=== PATIENT | male | born 1990 | race Two or more races ===

== ENCOUNTER 2019-06-18 11:01 | Emergency (ER) | payer OTHER ==
[2019-06-18] MEDS ORDERED: Ibuprofen 600 MG Tab PO ONE (11:07)
--- NOTE | 2019-06-18 11:11 | EDM.PDOC ---
ED HPI GENERAL MEDICAL PROBLEM - General Chief Complaint: Back Pain or Injury Stated Complaint: EV PAIN AFTER LIFTING AT WORK Time Seen by Provider: 06/18/19 11:01 Source of Information: Reports: Patient History Limitations: Reports: No Limitations - History of Present Illness INITIAL COMMENTS - FREE TEXT/NARRATIVE: 28 y.o.w.m came to the ed after he was lifting some weights at work and felt suddenly a pain and a "pup" at his mid lower back. No stool or urine incontinence, no pain radiating down his lower extremities. No direct trauma. Localized tender ness mid lower back. Standing makes the pain better. 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/56 RR 15 Pulse ox 100% on RA Temp 36.8 Pulse 68 Onset: Today Onset Date: 06/18/19 Onset Time: 08:00 Duration: Hour(s): Location: Reports: Back Quality: Reports: Dull, Pressure Severity: Moderate Improves with: Reports: Rest Worsens with: Reports: Movement Context: Reports: Lifting middle back Pain Score (Numeric/FACES): 4 - Related Data Allergies Allergy/AdvReac Type Severity Reaction Status Date / Time No Known Allergies Allergy Verified 06/18/19 11:21 ED ROS GENERAL - Review of Systems Review Of Systems: See Below Constitutional: Reports: No Symptoms HEENT: Reports: No Symptoms Respiratory: Reports: No Symptoms Cardiovascular: Reports: No Symptoms Endocrine: Reports: No Symptoms GI/Abdominal: Reports: No Symptoms : Reports: No Symptoms Musculoskeletal: Reports: Back Pain Skin: Reports: No Symptoms Neurological: Reports: No Symptoms Psychiatric: Reports: No Symptoms Hematologic/Lymphatic: Reports: No Symptoms Immunologic: Reports: No Symptoms ED EXAM,LOWER BACK PAIN/INJURY - Physical Exam Exam: See Below Exam Limited By: No Limitations General Appearance: Alert, WD/WN, Mild Distress Eye Exam: Bilateral Eye: Normal Inspection Ears: Normal External Exam Nose: Normal Inspection Throat/Mouth: Normal Inspection, Normal Lips, Normal Teeth, Normal Gums, Normal Voice, No Airway Compromise Head: Atraumatic, Normocephalic Neck: Normal Inspection, Supple, Non-Tender, Full Range of Motion Respiratory/Chest: No Respiratory Distress, Lungs Clear, Normal Breath Sounds Cardiovascular: Normal Peripheral Pulses, Regular Rate, Rhythm, No Edema, No Gallop GI/Abdominal: Normal Bowel Sounds, Soft, Non-Tender, No Organomegaly, No Abnormal Bruit, No Mass, Pelvis Stable (Male) Exam: Deferred Rectal (Males) Exam: Deferred Back Exam: Normal Inspection Psychiatric: Normal Affect, Normal Mood Skin Exam: Warm, Dry, Intact, Normal Color Lymphatic: No Adenopathy Course - Vital Signs Text/Narrative:: 28 y.o.w.m came to the ed after he was lifting some weights at work and felt suddenly a pain and a "pup" at his mid lower back. No stool or urine incontinence, no pain radiating down his lower extremities. No direct trauma. Localized tender ness mid lower back. Standing makes the pain better. 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/56 RR 15 Pulse ox 100% on RA Temp 36.8 Pulse 68 PE: WNWD W M with a work related injury lower back Imaging: CT T amd L spine Neg: As per RAD Impression: Low back pain/sprain Tx: ICE, Motrin Reexam: Improved Plan: D/C with instructions Last Recorded V/S: Last Vital Signs Temp 36.9 C 06/18/19 11:10 Pulse 68 06/18/19 11:10 Resp 14 06/18/19 11:10 BP 122/84 06/18/19 11:10 Pulse Ox 100 06/18/19 11:10 - Orders/Labs/Meds Meds: Medications Discontinued Medications Generic Name Dose Route Start Last Admin Trade Name Tina PRN Reason Stop Dose Admin Ibuprofen 600 mg 06/18/19 11:07 06/18/19 11:26 Motrin PO 06/18/19 11:08 600 mg ONETIME ONE Administration Departure - Departure Time of Disposition: 12:14 Disposition: Home, Self-Care 01 Condition: Good Clinical Impression: Low back pain Qualifiers: Chronicity: acute Back pain laterality: unspecified Sciatica presence: without sciatica Qualified Code(s): M54.5 - Low back pain - Discharge Information Instructions: Acute Back Pain, Adult Referrals: PCP,None [Primary Care Provider] - Forms: ED Department Discharge, ED Return to Work/School Form Additional Instructions: Please apply ice to lower back, Motrin for pain, F/U, come back if your symptoms get worse acutely
--- NOTE | 2019-06-18 14:02 | CT ---
INDICATION: Trauma. COMPUTERIZED TOMOGRAPHY OF THORACIC SPINE WITHOUT CONTRAST: Spiral 2.5 mm axial sections were obtained through the thoracic spine with sagittal and coronal reconstructions. Examination was obtained June 18, 2019--no comparisons. Total exam DLP =1089.33 mGy-cm. A minimal dextroconvex scoliosis of the upper middle thoracic spine is noted. There are some mild degenerative changes mostly in the mid-thoracic spine. Vertebral body and for the most part disc heights were well maintained with one narrow disc space in the mid thoracic spine apparently partly due to an intervertebral disc herniation at that level. However, no acute fracture or dislocation was suggested. IMPRESSION: No acute fracture or dislocation. Report was called to Dr. Wilkes at 1210 hours. [facility]
--- NOTE | 2019-06-18 14:11 | CT ---
INDICATION: Heavy lifting, severe back pain from below shoulder blades to sacrum. COMPUTERIZED TOMOGRAPHY OF LUMBAR SPINE WITHOUT CONTRAST: Spiral axial images of the lumbosacral spine were obtained 2.5 mm thickness with sagittal and coronal reconstructions as well as reconstructions angled through the L3-4, L4- 5 and L5-S1 disc spaces. Examination was obtained June 18, 2019--no comparisons. Total exam DLP was 922.20 mGy-cm. Vertebral body and disc heights appear to be fairly well maintained in the lumbosacral spine. There are minimal intervertebral disc herniations at L3 and L4 and very minimal at L2 most likely not of clinical significance. The pedicles appear to be intact. Vertebral elements are well aligned. No dislocation is seen at apophyseal joints. No significant degenerative changes were identified. Overall bone density appears to be normal. There are mildly bulging discs posteriorly mainly at L4-5 and L5-S1 but also at L3-4 most likely not of clinical significance, but should be correlated clinically. No evidence of spinal stenosis was identified. No evidence of acute fracture or dislocation was seen. IMPRESSION: 1. Fairly normal appearing lumbosacral spine CT. There is some mild bulging of L2 through S1 discs posteriorly of questionable significance and mild intervertebral disc herniations at L2, 3 and 4 mostly minimal at L2, however. These were also likely not of clinical significance. No acute fracture or dislocation was seen. Report was called to Dr. Wilkes at 1210 hours. [facility]
== END 2019-06-18 12:44 | disposition home or self-care (01) ==
LOC: FB.ED 11:01
DX: S33.5XXA Sprain of ligaments of lumbar spine, initial encounter (principal); X50.0XXA Overexertion from strenuous movement or load, initial encounter; Y99.0 Civilian activity done for income or pay
CPT/HCPCS: 72128; 72131; 99000; 99283; A9270

== ENCOUNTER 2024-03-04 10:49 | Emergency (ER) | payer OTHER ==
[2024-03-04 11:43] LABS: BASOPHILS PERCENT AUTO 0.5 % (0.3-3.8); BLOOD UREA NITROGEN,BUN 13 mg/dL (7-18); BUN/CREATININE RATIO 16.3 (9-20); CARBON DIOXIDE,CO2 32 mmol/L (21-32); CHLORIDE,CL 103 mmol/L (100-110); CREATININE 0.8 mg/dL (0.70-1.30); EOSINOPHILS ABSOLUTE AUTO 0.1 x10-3/uL (0.0-0.6); EOSINOPHILS PERCENT AUTO 1.3 % (0.1-6.8); EST CRCL DRUG DOSING (CG) 127.06 mL/min; ESTIMATED GFR 120 mL/min (>60); GLUCOSE RANDOM 105 mg/dL (80-116); HEMATOCRIT 45.4 % (38.3-50.1); HEMOGLOBIN 15.7 g/dL (12.9-17.7); LYMPHOCYTES ABSOLUTE AUTO 1.8 x10-3/uL (0.5-4.5); LYMPHOCYTES PERCENT AUTO 25.7 % (15.8-45.3); MEAN CORPUSCULAR HEMOGLOBIN 30.1 pg (27.0-33.3); MEAN CORPUSCULAR HGB CONC 34.5 g/dL (28.7-35.3); MEAN CORPUSCULAR VOLUME 87.3 fL (80.8-98.7); MEAN PLATELET VOLUME 7.8 fL (6.7-11.0); MONOCYTES ABSOLUTE AUTO 0.5 x10-3/uL (0.0-1.2); MONOCYTES PERCENT AUTO 7.1 % (5.5-15.2); NEUTROPHILS ABSOLUTE AUTO 4.7 x10-3/uL (1.7-6.9); NEUTROPHILS PERCENT AUTO 65.4 % (40.3-71.8); PLATELET COUNT,PLT 238 x10(3)uL (117-477); POTASSIUM,K 4.1 mmol/L (3.5-5.3); RED CELL DISTRIBUTION WIDTH 14.5 % (12.4-15.0); SODIUM,NA 142 mmol/L (135-145); WHITE BLOOD CELL COUNT,WBC 7.2 x10-3/uL (3.2-10.1)
[2024-03-04 11:49] LABS: A/G RATIO 0.9; ALANINE AMINOTRANSFERASE,ALT 116 U/L (12-36); ALBUMIN 3.8 g/dL (3.5-5.2); ALKALINE PHOSPHATASE 85 IU/L (56-112); ASPARTATE AMNIOTRANSFERASE,AST 43 IU/L (5-25); BILIRUBIN TOTAL 0.3 mg/dL (0.1-1.3); PROTEIN TOTAL,TP 7.9 g/dL (6.0-8.0)
[2024-03-04 12:01] LABS: LIPASE 30 U/L (16-77); TROPONIN I < 4.0 pg/mL (4.0-60.3)
[2024-03-04 12:02] LABS: C-REACTIVE PROTEIN < 0.50 mg/dL (<0.50)
[2024-03-04 12:11] LABS: BILIRUBIN,URINE NEGATIVE (NEGATIVE); GLUCOSE,URINE NORMAL (NORMAL); KETONES,URINE NEGATIVE (NEGATIVE); LEUKOCYTE ESTERASE,URINE NEGATIVE (NEGATIVE); NITRITE,URINE NEGATIVE (NEGATIVE); OCCULT BLOOD,URINE NEGATIVE (NEGATIVE); PROTEIN,URINE NEGATIVE (NEGATIVE); UROBILINOGEN,URINE NORMAL (NEGATIVE)
[2024-03-04 12:14] LABS: APPEARANCE,URINE CLEAR (CLEAR); COLOR,URINE YELLOW (YELLOW); RBC,URINE 0-5 (0-5); WBC,URINE 0-5 (0-5)
[2024-03-04 12:15] LABS: BACTERIA,URINE RARE (NS); MUCUS,URINE FEW (NS); SQUAMOUS EPITHELIAL CELLS,UR FEW (NS,R,O)
[2024-03-04 12:42] LABS: INFLUENZA A NAA NEGATIVE (NEGATIVE); INFLUENZA B NAA NEGATIVE (NEGATIVE); RESPIRATORY SYNCYTIAL VIR NAA NEGATIVE (NEGATIVE)
[2024-03-04 12:43] LABS: CORONAVIRUS COVID-19 NAA NEGATIVE (NEGATIVE)
== END 2024-03-04 13:20 | disposition home or self-care (01) ==
LOC: FB.ED 10:49
DX: S29.011A Strain of muscle and tendon of front wall of thorax, initial encounter (principal); R94.5 Abnormal results of liver function studies; Z86.16 Personal history of COVID-19; Z68.35 Body mass index [BMI] 35.0-35.9, adult; E66.9 Obesity, unspecified; X58.XXXA Exposure to other specified factors, initial encounter
CPT/HCPCS: 0241U; 36415; 71046; 80053; 81001; 83690; 84484; 85025; 85379; 86140; 93005; 99285